=== PATIENT | female | born 1980 | race Caucasian/White ===

== ENCOUNTER 2021-05-04 08:48 | Outpatient (CLI) | payer MEDICAID ==
[~2021-05-04] VITALS: Ht 175.3 cm; Wt 74.9 kg
[2021-05-04 09:10] VITALS: BP 122/84
[2021-05-04] MEDS ORDERED: ONDANSETRON 4 MG/2 ML (SDV) Z0FRAN IV PRN (09:15)
[2021-05-04] MEDS ORDERED: ACETAMINOPHEN 500 MG TAB (TYLENOL) PO PRN (09:15)
[2021-05-04] MEDS ORDERED: CASIRIVIMAB/IMDEVIMAB 1,200 MG in NS (IVPB) 50 ML IV ONE (09:15)
[2021-05-04] MEDS ORDERED: diphenhydrAMINE 50 MG/ML INJ (BENADRYL) IV PRN (09:15)
[2021-05-04] MEDS ORDERED: EPINEPHrine INJECTION 1 MG/ML AMP IM PRN (09:15)
[2021-05-04 10:15] VITALS: BP 124/80
== END 2021-05-04 10:27 ==
LOC: INFUSION 08:48
PROVIDERS: ATTEND Physician Assistant
DX: U07.1 COVID-19 (principal); E10.9 Type 1 diabetes mellitus without complications; E03.9 Hypothyroidism, unspecified